=== PATIENT | male | born 1965 | race African-American/Black ===

== ENCOUNTER 2016-12-24 18:54 | Emergency (ER) | payer SELFPAY ==
[~2016-12-24] VITALS: Ht 177.8 cm; Wt 91.0 kg
[2016-12-24 18:57] VITALS: BP 129/88
== END 2016-12-24 21:22 | disposition left against medical advice (07) ==
LOC: ER 19:20
DX: Z00.8 Encounter for other general examination (principal); Z53.21 Procedure and treatment not carried out due to patient leaving prior to being seen by health care provider